=== PATIENT | male | born 1940 | race Caucasian/White ===

== ENCOUNTER → 2017-04-20 | Outpatient (CLI) | payer MEDICARE, OTHER ==
[~2017-04-20] MED LIST: ASPI-496 PO; CINN500C2 PO; DIURETIC PO; FERR140T2 PO; KRIL500C PO; METO50TA82 PO; RITU10VI IV; SIMV40TA3 PO; UBID100C24 PO; [UNRECOGNIZED DRUG - REMARK] PO
== END ==
LOC: RAD 11:45
PROVIDERS: ATTEND Internal Medicine
DX: R91.8 Other nonspecific abnormal finding of lung field (principal)
CPT/HCPCS: 71250